=== PATIENT | female | born 1995 | race Caucasian/White ===

== ENCOUNTER 2017-01-25 18:51 | Emergency (ER) | payer MEDICAID ==
[~2017-01-25] VITALS: Ht 154.9 cm; Wt 52.2 kg
[~2017-01-25 18:51] MED LIST: ATIVAN1 MG PO; DESYREL50 MG PO; PERCOCET 5/3251 TAB PO; PHENERGAN25 M3 PO; REMERON15 MG PO; ZOFRAN ODT4 MG PO
[2017-01-25 18:55] VITALS: BP 127/80
--- NOTE | 2017-01-25 19:33 | NUR ---
PATIENT PRESENTS TO ED S/P SEIZURES AFTER PT STATES SHE RAN OUT OF [facility] 2 DAYS AGO . PT STATES SHE CURRENTLY IS EXPERIENCING CHEST PAIN AND VOMITING SINCE 10AM . DENIES DIARRHEA; SKIN IS PINK/WARM/DRY; AAOX4 WITH EVEN AND STEADY GAIT; LUNGS CLEAR BL; HR EVEN AND TACHY; PT DENIES ANY FEVER, SOB, OR COUGH AT THIS TIME; PATIENT STATES PAIN OF 10/10 AT THIS TIME; VSS; PATIENT POSITIONED FOR COMFORT; HOB ELEVATED; BEDRAILS UP X2; BED DOWN. ER MD MADE AWARE OF PT STATUS. BOYFRIEND AT BEDSIDE
[2017-01-25] MEDS ORDERED: NACL 0.9% 500 ML IV ONE (19:50)
[2017-01-25] MEDS ORDERED: ONDANSETRON 4 MG/2 ML VIAL IVP ONE ×2 (19:55→20:45)
--- NOTE | 2017-01-25 20:04 | NUR ---
X-Ray at bedside.
[2017-01-25] MEDS ORDERED: LORazepam 2 MG/ML VIAL IVP ONE (20:40)
--- NOTE | 2017-01-25 21:22 | NUR ---
Patient appears to be resting comfortably in bed. Vital Signs within normal limits. Respirations even and unlabored. BOYFRIEND AT SIDE
[2017-01-25 22:05] VITALS: BP 132/77
== END 2017-01-25 22:05 | disposition home or self-care (01) ==
LOC: MED 18:51
DX: F41.0 Panic disorder [episodic paroxysmal anxiety] (principal); F44.5 Conversion disorder with seizures or convulsions; Z87.19 Personal history of other diseases of the digestive system; Z98.890 Other specified postprocedural states; Z88.5 Allergy status to narcotic agent; Z88.2 Allergy status to sulfonamides; Z88.1 Allergy status to other antibiotic agents
CPT/HCPCS: 36415; 71010; 80053; 82553; 83880; 84146; 84484; 85025; 85379; 85610; 85730; 93005; 96361; 96374; 96375; 99285; J2060; J2405; J7030; Q0092

== ENCOUNTER 2021-08-20 07:15 | Emergency (ER) | payer OTHER, MEDICAID ==
[~2021-08-20] VITALS: Ht 162.6 cm; Wt 72.6 kg
[~2021-08-20 07:15] MED LIST changes: -ATIVAN1 MG PO; -DESYREL50 MG PO; +LORA-476 PO; +MIRT-91 PO; +ONDA-24 PO; +OXYC1TAB PO; -PERCOCET 5/3251 TAB PO; -PHENERGAN25 M3 PO; +PROM25TA85 PO; -REMERON15 MG PO; +TRAZ-343 PO; -ZOFRAN ODT4 MG PO
--- NOTE | 2021-08-20 07:20 | NUR ---
Patient wheelchair assisted to bed 6.
--- NOTE | 2021-08-20 07:22 | NUR ---
Dr. Crowe is evaluating patient at bedside
--- NOTE | 2021-08-20 07:25 | NUR ---
Patient presents A&Ox4 with Dr. Crowe at bedside; answering questions appropriately.
[2021-08-20] MEDS ORDERED: NACL 0.9% 1,000 ML IV SCH (07:30)
[2021-08-20] MEDS ORDERED: ONDANSETRON 4 MG/2 ML VIAL ONE (07:30)
[2021-08-20] MEDS ORDERED: ONDANSETRON 4 MG/2 ML VIAL IVP ONE (07:30)
--- NOTE | 2021-08-20 07:30 | NUR ---
LABS DRAWN AND SENT TO LAB, NOTIFIED PARTS CATALOGER THT BLOOD SAMPLES WERE DRAWN AT 0730 AND WILL BE LEFT AT FINANCIAL ENGINEER.
[2021-08-20 07:39] VITALS: BP 136/68
[2021-08-20] MEDS ORDERED: diphenhydrAMINE 50 MG/ML VIAL IVP ONE (07:45)
--- NOTE | 2021-08-20 07:53 | NUR ---
25 Y/O F BIB MOTHER FROM HOME, WHEELCHAIR TO BED 6. PT BECAME FLACCID AND HAD LOC. NO FALL AT THIS TIME. PT WAS ASSISTED ONTO BED, IV ESTABLISHED ON BOTH AC R AC 22G AND L AC 20G. PT IS CURRENTLY A&OX4, C/O ABD PAIN 10/10 ACHING IN ALL QUADRANTS, N&V WITH DIARRHEA 3 DAYS AGO AND NO BM SINCE THEN. SKIN IS PINK/WARM/DRY; LUNGS CLEAR BL; HR EVEN AND REGULAR; PT DENIES ANY FEVER, CP, SOB, OR COUGH AT THIS TIME; VSS; PATIENT POSITIONED FOR COMFORT; HOB ELEVATED; BEDRAILS UP X2; BED DOWN. ER MD MADE AWARE OF PT STATUS. PMH: IBS, "I HAVE TOO MANY" MED: DENIES ALLERGY: MORPHINE, SULFAMETHOXAZOLE, TRIMETHOPRIM
[2021-08-20 08:17] LABS: BASOPHILS % (AUTO) 0.1 % (0.0-2.0); HEMATOCRIT 42.3 % (36-48); HEMOGLOBIN 14.5 g/dL (12.0-16.0); LYMPHOCYTES # (AUTO) 0.7 K/uL (2.5-16.5); LYMPHOCYTES % (AUTO) 6.1 % (20.5-51.1); MEAN CORPUSCULAR HEMOGLOBIN 28 pg (27-31); MEAN CORPUSCULAR HGB CONC 34 g/dL (33-37); MEAN CORPUSCULAR VOLUME 81.1 fL (80-94); MONOCYTES # (AUTO) 1.2 K/uL (0.8-1.0); MONOCYTES % (AUTO) 10.1 % (1.7-9.3); NEUTROPHILS % (AUTO) 83.7 % (42.2-75.2); PLATELET COUNT (AUTO) 389 K/uL (140-450); RED BLOOD CELL COUNT(AUTO) 5.22 MIL/uL (4.20-5.40)
[2021-08-20] MEDS ORDERED: HALOPERIDOL IM 5 MG/ML VIAL IVP ONE (08:20)
[2021-08-20 08:26] LABS: ANION GAP 15.3 (8-16); CARBON DIOXIDE 29.1 mmol/L (21-32); CREATININE 1.3 mg/dL (0.6-1.3); POTASSIUM 3.4 mmol/L (3.5-5.1)
--- NOTE | 2021-08-20 08:30 | NUR ---
Patient assisted to restroom by wheelchair. Top hat provided and patient unable to urinate at this time. Assisted back onto bed.
[2021-08-20 08:32] LABS: ALBUMIN 4.7 g/dL (3.4-5.0); TOTAL BILIRUBIN 1.8 mg/dL (0.0-1.0)
[2021-08-20] MEDS ORDERED: LORazepam 2 MG/ML VIAL IVP ONE (08:35)
--- NOTE | 2021-08-20 08:36 | NUR ---
Patient witnessed by 2 RN's to have seizure-like activity while on wheelchair. Patient with full body stiffness and sloped down to ground level. Patient assisted by 2 RN's onto bed and reoriented to situation.
--- NOTE | 2021-08-20 08:37 | NUR ---
Patient reoriented and advised she may have had a seizure. Patient reassessed and states "I need pain medication. They normally give me Dilaudid for pain because I am allergic to Morphine." Patient A&Ox4 upon assessment. Dr. Crowe made aware and new orders placed.
[2021-08-20] MEDS ORDERED: LORazepam 2 MG/ML VIAL ONE (08:40)
[2021-08-20] MEDS ORDERED: POTASSIUM CHLORIDE 10 MEQ TABER PO ONE (08:45)
[2021-08-20] MEDS ORDERED: NACL 0.9% 1,000 ML IV ONE (08:45)
--- NOTE | 2021-08-20 08:50 | NUR ---
PT WAS TAKEN TO CT ACCOMPANIED RESORT HOUSEKEEPER TO IMAGING. POST IMAGING, PT STATES SHE STARTED HAVING A SEIZURE. PT STARTED SHAKING FOR 10 SECONDS, OPENED EYES AND STATED SHE WANTED DILAUDID FOR PAIN. PT VITALS STABLE AT THIS TIME. NO ORAL OR NEW INJURIES AT THIS TIME.
--- NOTE | 2021-08-20 09:16 | NUR ---
PATIENT PLACED ON BEDPAN AT THIS TIME
--- NOTE | 2021-08-20 09:27 | NUR ---
PT STATES SHE CAN NOT TAKE MEDICATION ORALLY BECAUSE OF N&V. REQUESTED WATER PO. PT HAD SIP OF WATER PER REQUEST, PT HAVING DRY HEAVING AT THIS TIME. ERMD NOTIFIED. PT REFUSED POTASSIUM PO AT THIS TIME.
[2021-08-20] MEDS ORDERED: POTASSIUM CHLORIDE 20% 40 MEQ/15 ML UDC PO ONE (09:30)
--- NOTE | 2021-08-20 09:42 | NUR ---
PT PLACED ON BEDPAN AT THIS TIME.
[2021-08-20 09:50] VITALS: BP 121/81
--- NOTE | 2021-08-20 09:50 | NUR ---
PT GOT UP FROM BED, TOOK OFF MONITOR EQUIPMENT AND PROCEEDED TO TRY AND AMBULATE TO BATHROOM. TRIED TO REDIRECT PT THAT IT WAS NOT SAFE TO AMBULATE AT THIS TIME WITH MEDICATION GIVEN AND WITH SEIZURES FROM EARLIER. PT STATES SHE WANTED TO WALK TO BATHROOM. EXPLAINED TO PT THAT IT WAS NOT SAFE AT THIS TIME TO AMBULATE. PT REFUSED BEDPAN AND REFUSED TO RETURN TO ROOM AND STATED SHE WILL CALL HER MOM TO PICK HER UP AND LEAVE. THOMAS WAS NOTIFIED AT THIS TIME AND EXPLAINED RISKS OF LEAVING AMA.
--- NOTE | 2021-08-20 09:51 | NUR ---
PT REFUSED SPLINT. ERMD NOTIFIED
--- NOTE | 2021-08-20 09:55 | NUR ---
Patient does not wish to proceed with medical care recommended by AL ROBERT. Patient given information related to possible complications, up to and including , which could occur as a result of leaving hospital at this time. Patient verbalizes understanding of risks involved leaving against medical advice. Patient has signed AMA form.
--- NOTE | 2021-08-20 09:58 | NUR ---
PT STATES HER MOTHER WILL BE TAKING HER TO [facility]. SIGNED AMA PAPERWORK AND LEFT WITHOUT DISCHARGE INFORMATION.
== END 2021-08-20 09:55 | disposition left against medical advice (07) ==
LOC: MED 07:15
DX: S62.396A Other fracture of fifth metacarpal bone, right hand, initial encounter for closed fracture (principal); R10.84 Generalized abdominal pain; Z90.49 Acquired absence of other specified parts of digestive tract; X58.XXXA Exposure to other specified factors, initial encounter; Y93.89 Activity, other specified; Y92.89 Other specified places as the place of occurrence of the external cause; Y99.8 Other external cause status
CPT/HCPCS: 73130; 74177; 80053; 83690; 84703; 85025; 96361; 96374; 96375; 99285; J1200; J1630; J2060; J2405; J7030; Q0092; Q9967

== ENCOUNTER 2021-11-18 19:05 | Emergency (ER) | payer MEDICAID, OTHER ==
[~2021-11-18] VITALS: Ht 154.9 cm; Wt 77.1 kg
[~2021-11-18 19:05] MED LIST changes: +ONDA-188 PO; -ONDA-24 PO
--- NOTE | 2021-11-18 19:08 | NUR ---
PT W/C ASSISTED TO BED 08.
--- NOTE | 2021-11-18 19:08 | NUR ---
Dr. Castro examining patient.
[2021-11-18 19:15] VITALS: BP 133/92
[2021-11-18] MEDS ORDERED: NACL 0.9% 1,000 ML IV ONE (19:15)
[2021-11-18] MEDS ORDERED: ONDANSETRON 4 MG/2 ML VIAL IVP ONE ×2 (19:15→21:15)
[2021-11-18 19:35] LABS: BASOPHILS % (AUTO) 0.4 % (0.0-2.0); HEMATOCRIT 44.6 % (36-48); HEMOGLOBIN 15.4 g/dL (12.0-16.0); LYMPHOCYTES # (AUTO) 1.3 K/uL (2.5-16.5); LYMPHOCYTES % (AUTO) 12.6 % (20.5-51.1); MEAN CORPUSCULAR HEMOGLOBIN 29 pg (27-31); MEAN CORPUSCULAR HGB CONC 35 g/dL (33-37); MEAN CORPUSCULAR VOLUME 82.4 fL (80-94); MONOCYTES # (AUTO) 0.8 K/uL (0.8-1.0); MONOCYTES % (AUTO) 8.1 % (1.7-9.3); NEUTROPHILS # (AUTO) 7.8 K/uL (1.8-7.7); NEUTROPHILS % (AUTO) 78.9 % (42.2-75.2); PLATELET COUNT (AUTO) 456 K/uL (140-450); RED BLOOD CELL COUNT(AUTO) 5.41 MIL/uL (4.20-5.40); RED CELL DISTRIBUTION WIDTH 13.6 % (11.6-13.7); WHITE BLOOD COUNT (AUTO) 9.9 K/uL (4.8-10.8)
--- NOTE | 2021-11-18 19:36 | NUR ---
26 Y/O FEMALE BIB BOYFRIEND W/ C/O SEIZURES X7 DAYS AND ABD PAIN X1 DAY. PT REPORTS THAT SHE WAS DIAGNOSED WITH PSYCHOGENIC SEIZURES 3 YEARS AGO FROM [facility]. PT STATES 10/10 PAIN TO ABDOMEN. PT STATES SHE HAS GONE TO [facility] AND THEY DO NOTHING FOR HER. BLOOD GLUCOSE WAS 110 . A&0 X4. PT IS SLOW TO SPEAK D/T WEAKNESS SHE HAS BEEN NAUSEATED AND VOMITING X7 DAYS. PT STATES SHE HAS AURAS BEFORE SEIZURE. PT STATES SHE SUSPECTS A UTI ALLERGIES: BACTRIM, MORPHINE, CLEAR TAPE
[2021-11-18 19:58] LABS: ALBUMIN 4.8 g/dL (3.4-5.0); ANION GAP 18.8 (8-16); ASPARTATE AMINOTRANSFERASE 35 U/L (15-37); CARBON DIOXIDE 23.6 mmol/L (21-32); CHLORIDE 99 mmol/L (98-107); CREATININE 1.3 mg/dL (0.6-1.3); GFR ARICAN-AMERICAN 63 mL/min (>90); GLUCOSE 108 mg/dL (74-106); LIPASE 68 U/L (73-393); POTASSIUM 3.4 mmol/L (3.5-5.1); SODIUM SERUM 138 mmol/L (136-145); TOTAL BILIRUBIN 0.7 mg/dL (0.0-1.0); UREA NITROGEN, BLOOD 15 mg/dL (7-18)
[2021-11-18 21:02] LABS: APPEARANCE,URINE CLEAR (CLEAR); BILIRUBIN,URINE 1+ (NEGATIVE); BLOOD, URINE NEGATIVE (NEGATIVE); LEUKOCYTE ESTERASE ,URINE NEGATIVE (NEGATIVE); NITRITE, URINE NEGATIVE (NEGATIVE); UGLUCOSE NEGATIVE (NEGATIVE)
[2021-11-18 21:03] LABS: COLOR,URINE YELLOW (YELLOW)
[2021-11-18] MEDS ORDERED: LORazepam 2 MG/ML VIAL IVP ONE (21:15)
[2021-11-18] MEDS ORDERED: KETOROLAC 30 MG/ML VIAL IVP ONE (21:15)
[2021-11-18] MEDS ORDERED: ONDA-188 SL (21:31)
[2021-11-18 21:38] VITALS: BP 116/66
[2021-11-18 22:08] LABS: BARBITURATE, URINE NEGATIVE ng/ml (NEG <=200); BENZODIAZEPINE, URINE POSITIVE ng/mL (NEG <=200); CANNABINOID, URINE POSITIVE ng/mL (NEG <=50); COCAINE, URINE NEGATIVE ng/mL (NEG <=300); OPIATE, URINE NEGATIVE ng/mL (NEG <=2000); PHENCYCLIDINE SCREEN,URINE NEGATIVE ng/mL (NEG <=25)
== END 2021-11-18 21:40 | disposition home or self-care (01) ==
LOC: MED 19:05
DX: F41.9 Anxiety disorder, unspecified (principal); R11.15 Cyclical vomiting syndrome unrelated to migraine; Z88.5 Allergy status to narcotic agent; Z88.8 Allergy status to other drugs, medicaments and biological substances
CPT/HCPCS: 36415; 80053; 80305; 81003; 83690; 84703; 85025; 96361; 96374; 96375; 96376; 99284; G0482; J1885; J2060; J2405; J7030; 96360

== ENCOUNTER 2021-11-20 09:57 | Emergency (ER) | payer OTHER ==
[~2021-11-20] VITALS: Ht 154.9 cm; Wt 77.1 kg
[~2021-11-20 09:57] MED LIST changes: +ONDA-188 SL
[2021-11-20 10:05] VITALS: BP 124/97
--- NOTE | 2021-11-20 10:28 | NUR ---
PT TO WAIT IN LOBBY
[2021-11-20] MEDS ORDERED: ATA25 PO (11:07)
[2021-11-20] MEDS ORDERED: METO-486 PO (11:07)
[2021-11-20 11:28] VITALS: BP 105/70
--- NOTE | 2021-11-20 11:29 | NUR ---
Patient discharged with v/s stable. Written and verbal after care instructions given and explained. Patient verbalized understanding. Ambulatory with steady gait. All questions addressed prior to discharge. Advised to follow up with PMD.
== END 2021-11-20 11:28 | disposition home or self-care (01) ==
LOC: MED 09:57
DX: F41.9 Anxiety disorder, unspecified (principal); R11.15 Cyclical vomiting syndrome unrelated to migraine; Z98.890 Other specified postprocedural states; Z79.899 Other long term (current) drug therapy; Z88.1 Allergy status to other antibiotic agents; Z88.2 Allergy status to sulfonamides; Z88.5 Allergy status to narcotic agent
CPT/HCPCS: 99283

== ENCOUNTER 2024-07-04 03:04 | Inpatient (IN) | payer OTHER ==
[~2024-07-04] VITALS: Ht 167.6 cm; Wt 104.3 kg
[~2024-07-04 03:04] MED LIST changes: +ATA25 PO; +METO-486 PO; +MIRT-120 PO; -MIRT-91 PO
[2024-07-04] MEDS ORDERED: HALOPERIDOL IM 5 MG/ML VIAL ONE ×3 (03:16→13:36)
[2024-07-04] MEDS: HALOPERIDOL IM 5 MG/ML VIAL IM ONE ×3 (03:28→13:42)
[2024-07-04] MEDS: diphenhydrAMINE 50 MG/ML VIAL IVP ONE ×3 (03:42→13:47)
[2024-07-04] MEDS: LORazepam 2 MG/ML VIAL IVP ONE ×3 (03:45→15:45)
[2024-07-04] MEDS ORDERED: LORazepam 2 MG/ML VIAL IVP ONE (04:25)
[2024-07-04] MEDS ORDERED: LORazepam 2 MG/ML VIAL ONE ×4 (04:28→15:32)
[2024-07-04] MEDS: NACL 0.9% 1,000 ML IV ONE ×2 (04:47→13:21)
[2024-07-04] MEDS ORDERED: ONDANSETRON 4 MG ODT ONE (05:20)
[2024-07-04] MEDS: ONDANSETRON 4 MG ODT PO ONE ×2 (05:23→09:01)
[2024-07-04 07:20] LABS: BASOPHILS # (AUTO) 0.1 K/uL (0.00-0.22); BASOPHILS % (AUTO) 0.6 % (0.0-2.0); HEMATOCRIT 40.4 % (36-48); HEMOGLOBIN 13.8 g/dL (12.0-16.0); LYMPHOCYTES # (AUTO) 0.6 K/uL (2.5-16.5); LYMPHOCYTES % (AUTO) 5.5 % (20.5-51.1); MEAN CORPUSCULAR HEMOGLOBIN 27 pg (27-31); MEAN CORPUSCULAR HGB CONC 34 g/dL (33-37); MEAN CORPUSCULAR VOLUME 79.2 fL (80-94); MONOCYTES # (AUTO) 0.6 K/uL (0.8-1.0); MONOCYTES % (AUTO) 5.5 % (1.7-9.3); NEUTROPHILS % (AUTO) 88.4 % (42.2-75.2); PLATELET COUNT (AUTO) 390 K/uL (140-450); RED CELL DISTRIBUTION WIDTH 14.1 % (11.6-13.7); WHITE BLOOD COUNT (AUTO) 10.1 K/uL (4.8-10.8)
[2024-07-04 07:59] LABS: ALANINE AMINOTRANSFERASE 55 U/L (12-78); ALBUMIN 4.7 g/dL (3.4-5.0); ALCOHOL, BLOOD < 3 mg/dL (<10); ALKALINE PHOSPHATASE 90 U/L (50-136); ANION GAP 16.6 (8-16); ASPARTATE AMINOTRANSFERASE 21 U/L (15-37); CALCIUM 9.7 mg/dL (8.5-10.1); CARBON DIOXIDE 25.8 mmol/L (21-32); CHLORIDE 98 mmol/L (98-107); CREATININE 1.2 mg/dL (0.6-1.3); GFR ARICAN-AMERICAN 68 mL/min (>90); GFR NON ARICAN-AMERICAN 56 mL/min (>90); GLUCOSE 151 mg/dL (74-106); POTASSIUM 3.4 mmol/L (3.5-5.1); SODIUM SERUM 137 mmol/L (136-145); TOTAL BILIRUBIN 0.7 mg/dL (0.0-1.0); TOTAL PROTEIN, SERUM 8.7 g/dL (6.4-8.2); UREA NITROGEN, BLOOD 11 mg/dL (7-18)
[2024-07-04 08:07] LABS: ACETAMINOPHEN < 0.5 ug/ml (10-30); SALICYLATE < 2.8 mg/dL (2.8-20.0)
[2024-07-04] MEDS: LORazepam 2 MG/ML VIAL IM ONE ×2 (09:26→14:04)
[2024-07-04] MEDS ORDERED: diphenhydrAMINE 50 MG/ML VIAL ONE (13:35)
[2024-07-04] MEDS ORDERED: METOCLOPRAMIDE 10 MG/2 ML INJ VIAL ONE (13:35)
[2024-07-04] MEDS: METOCLOPRAMIDE 10 MG/2 ML INJ VIAL IVP ONE (13:48)
[2024-07-04] MEDS ORDERED: WATER STERILE 10 ML MC ONE ×2 (15:01→23:44)
[2024-07-04] MEDS: ZIPRASIDONE MESYLATE 20 MG/ML VIAL IM ONE (15:05)
[2024-07-04] MEDS: MIDAZOLAM 2 MG/2 ML VIAL IM ONE (17:29)
[2024-07-04] MEDS ORDERED: MORPHINE SULFATE 4 MG/ML SYR IVP PRN (18:05)
[2024-07-04] MEDS: QUEtiapine FUMARATE 25 MG TAB PO SCH (19:42)
[2024-07-04] MEDS: ONDANSETRON 4 MG/2 ML VIAL IVP PRN (22:35)
[2024-07-04] MEDS: HALOPERIDOL IM 5 MG/ML VIAL IM PRN (22:36)
[2024-07-04] MEDS: ZOLPIDEM 5 MG TAB PO PRN (22:37)
[2024-07-04] MEDS: LORazepam 1 MG TAB PO PRN (22:37)
[2024-07-04 23:19] LABS: BILIRUBIN,URINE NEGATIVE (NEGATIVE); BLOOD, URINE NEGATIVE (NEGATIVE); COLOR,URINE YELLOW (YELLOW); LEUKOCYTE ESTERASE ,URINE NEGATIVE (NEGATIVE); NITRITE, URINE NEGATIVE (NEGATIVE); PROTEIN,URINE TRACE (NEGATIVE); UGLUCOSE NEGATIVE (NEGATIVE); UROBILINOGEN,URINE 0.2 EU/dL (0.2 - 1)
[2024-07-04 23:22] LABS: APPEARANCE,URINE CLOUDY (CLEAR)
[2024-07-04 23:27] LABS: BACTERIA,URINE FEW /HPF (None Seen); MUCUS,URINE 2+ /LPF (None Seen); RBC,URINE 0-5 /HPF (0-5); SQUAMOUS EPITHELIAL CELL,UR 0-3 (FEW) /LPF (0-3 (FEW)); URINE AMORPHOUS URATE 1+ /HPF (None Seen); WBC,URINE 0-5 /HPF (0-5)
[2024-07-04] MEDS ORDERED: OLANZapine 10 MG VIAL IM ONE (23:43)
[2024-07-04] MEDS: OLANZapine 10 MG VIAL IM SCH (23:50)
[2024-07-04 23:55] LABS: BARBITURATE, URINE NEGATIVE ng/ml (NEG <=200); CANNABINOID, URINE POSITIVE ng/mL (NEG <=50)
[2024-07-04 23:56] LABS: AMPHETAMINE, URINE NEGATIVE ng/ml (NEG <=1000); BENZODIAZEPINE, URINE POSITIVE ng/mL (NEG <=200); COCAINE, URINE NEGATIVE ng/mL (NEG <=300); OPIATE, URINE POSITIVE ng/mL (NEG <=2000); PHENCYCLIDINE SCREEN,URINE NEGATIVE ng/mL (NEG <=25)
[2024-07-05] MEDS: LORazepam 2 MG/ML VIAL IVP STA (02:14)
[2024-07-05] MEDS ORDERED: OLANZapine 10 MG VIAL IM ONE ×3 (08:20→19:11)
[2024-07-05] MEDS: OLANZapine 10 MG VIAL IM ONE ×3 (08:46→19:19)
[2024-07-05 09:01] LABS: BASOPHILS # (AUTO) 0.1 K/uL (0.00-0.22); BASOPHILS % (AUTO) 0.6 % (0.0-2.0); HEMATOCRIT 37.9 % (36-48); HEMOGLOBIN 12.5 g/dL (12.0-16.0); LYMPHOCYTES # (AUTO) 1.1 K/uL (2.5-16.5); LYMPHOCYTES % (AUTO) 13.6 % (20.5-51.1); MEAN CORPUSCULAR HEMOGLOBIN 27 pg (27-31); MEAN CORPUSCULAR HGB CONC 33 g/dL (33-37); MEAN CORPUSCULAR VOLUME 80.5 fL (80-94); MONOCYTES # (AUTO) 0.9 K/uL (0.8-1.0); MONOCYTES % (AUTO) 10.9 % (1.7-9.3); NEUTROPHILS # (AUTO) 6.2 K/uL (1.8-7.7); NEUTROPHILS % (AUTO) 74.9 % (42.2-75.2); PLATELET COUNT (AUTO) 345 K/uL (140-450); RED BLOOD CELL COUNT(AUTO) 4.71 MIL/uL (4.20-5.40); RED CELL DISTRIBUTION WIDTH 14.2 % (11.6-13.7); WHITE BLOOD COUNT (AUTO) 8.3 K/uL (4.8-10.8)
[2024-07-05 09:20] LABS: ALBUMIN 4.2 g/dL (3.4-5.0); ANION GAP 17.9 (8-16); CALCIUM 9.9 mg/dL (8.5-10.1); CARBON DIOXIDE 22.4 mmol/L (21-32); CREATININE 1.4 mg/dL (0.6-1.3); POTASSIUM 3.3 mmol/L (3.5-5.1); TOTAL BILIRUBIN 0.9 mg/dL (0.0-1.0); TOTAL PROTEIN, SERUM 7.7 g/dL (6.4-8.2)
[2024-07-05] MEDS: DOCUSATE SODIUM 100 MG GELCAP PO SCH (10:37)
[2024-07-05] MEDS: ACETAMINOPHEN 325 MG TAB PO PRN (11:56)
[2024-07-05] MEDS: amLODIPine 5 MG TAB PO SCH (13:00)
[2024-07-05] MEDS: NICOTINE TRANSD SYS 7 MG/24 HR PATCH TD SCH (14:11)
[2024-07-05] MEDS ORDERED: diphenhydrAMINE 50 MG/ML VIAL ONE (14:24)
[2024-07-05] MEDS: diphenhydrAMINE 50 MG/ML VIAL IVP ONE (14:29)
[2024-07-05] MEDS ORDERED: LORazepam 2 MG/ML VIAL ONE (15:07)
[2024-07-05] MEDS: LORazepam 2 MG/ML VIAL IM/IVP PRN (15:54)
[2024-07-05] MEDS ORDERED: levETIRAcetam 100 MG/ML VIAL IV ONE (18:12)
[2024-07-05] MEDS: levETIRAcetam 500 MG in NACL 0.9% 100 ML IV SCH (18:41)
[2024-07-05] MEDS ORDERED: WATER STERILE 10 ML MC ONE (18:58)
[2024-07-05] MEDS: diphenhydrAMINE 50 MG/ML VIAL IM PRN (19:05)
[2024-07-05 23:30] VITALS: O2SAT 92
[2024-07-06] MEDS: GABAPENTIN 100 MG CAP PO SCH (00:21)
[2024-07-06] MEDS: traZODone 50 MG TAB PO SCH (00:22)
[2024-07-06] MEDS: QUEtiapine FUMARATE 100 MG TAB PO SCH (00:22)
[2024-07-06 04:00] VITALS: BP 158/75; PULSE 111; RESP 19; TEMP 98.7; O2SAT 98
[2024-07-06] MEDS: levETIRAcetam 100 MG/ML VIAL IV ONE (06:15)
[2024-07-06 06:46] LABS: BASOPHILS % (AUTO) 0.2 % (0.0-2.0); HEMATOCRIT 37.2 % (36-48); HEMOGLOBIN 12.6 g/dL (12.0-16.0); LYMPHOCYTES # (AUTO) 1.3 K/uL (2.5-16.5); LYMPHOCYTES % (AUTO) 18.1 % (20.5-51.1); MEAN CORPUSCULAR HEMOGLOBIN 27 pg (27-31); MEAN CORPUSCULAR HGB CONC 34 g/dL (33-37); MONOCYTES # (AUTO) 0.8 K/uL (0.8-1.0); MONOCYTES % (AUTO) 11.2 % (1.7-9.3); NEUTROPHILS # (AUTO) 5.1 K/uL (1.8-7.7); NEUTROPHILS % (AUTO) 70.5 % (42.2-75.2); PLATELET COUNT (AUTO) 347 K/uL (140-450); RED BLOOD CELL COUNT(AUTO) 4.65 MIL/uL (4.20-5.40); RED CELL DISTRIBUTION WIDTH 13.8 % (11.6-13.7); WHITE BLOOD COUNT (AUTO) 7.2 K/uL (4.8-10.8)
[2024-07-06 08:00] VITALS: BP 102/72; PULSE 100; PULSE 111; RESP 19; TEMP 97.6; O2SAT 94; O2SAT 98
[2024-07-06] MEDS: GABAPENTIN 300 MG CAP PO SCH (08:47)
[2024-07-06] MEDS: QUEtiapine FUMARATE 25 MG TAB PO SCH (08:48)
[2024-07-06] MEDS: PROMETHAZINE 25 MG TAB PO PRN (08:49)
[2024-07-06] MEDS: OLANZapine 5 MG TAB PO PRN (14:18)
[2024-07-06] MEDS: KETOROLAC 30 MG/ML VIAL IM SCH (14:19)
[2024-07-06] MEDS: KETOROLAC 30 MG/ML VIAL ONE (14:29)
[2024-07-06 16:00] VITALS: BP 128/73; PULSE 114; RESP 20; TEMP 96.9; O2SAT 96
[2024-07-06 20:00] VITALS: PULSE 105; RESP 19; O2SAT 98
[2024-07-07] VITALS: BP 128/73; PULSE 105; RESP 19; TEMP 96.9; O2SAT 98
[2024-07-07] MEDS ORDERED: diphenhydrAMINE 50 MG/ML VIAL IM ONE (05:05)
== END 2024-07-07 05:25 | disposition left against medical advice (07) | DRG 425 ==
LOC: MED 03:04 → MTU 18:04
PROVIDERS: ADMIT Student in an Organized Health Care Education/Training Program; ATTEND Student in an Organized Health Care Education/Training Program
DX: E87.6 Hypokalemia (principal); R56.9 Unspecified convulsions; F17.210 Nicotine dependence, cigarettes, uncomplicated; F31.9 Bipolar disorder, unspecified; F43.10 Post-traumatic stress disorder, unspecified; Z53.29 Procedure and treatment not carried out because of patient's decision for other reasons; F41.9 Anxiety disorder, unspecified; Z88.5 Allergy status to narcotic agent; Z88.8 Allergy status to other drugs, medicaments and biological substances; Z79.899 Other long term (current) drug therapy
CPT/HCPCS: 36415; 80053; 80305; 81001; 85025; 87081; 93005; 96372; 96374; 96375; 96376; 99285; G0480; G0482; J1200; J1630; J1885; J1953; J2060; J2250; J2405; J2765; J3486; J3490; Q0162; Q0169